=== PATIENT | female | born 1990 | race American Indian/Alaskan Native ===

== ENCOUNTER 2021-07-27 22:11 | Emergency (ER) | payer SELFPAY ==
[2021-07-27] MEDS ORDERED: AMOXICILLIN/K CLAV 875/125MG TAB PO ONE (23:05)
--- NOTE | 2021-07-27 23:10 | Emergency Department Report ---
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 Patient states she was obtaining a UA from a and accidentally had urine splashed on her eyes. Nurse did irrigate eyes with water prior to presenting to ED. Tetanus is up-to-date. There was no other contact or body fluids. Requesting baseline lab evaluation. Severity scale (0 -10): 0 - Related Data Previous Rx's Medication Instructions Recorded Last Taken Type Polymyxin B Sulf/Trimethoprim 2 drops OU Q3H 7 Days #10 ml 07/27/21 Unknown Rx [Polytrim Eye Drops] ED Review of Systems ROS: Stated complaint: BODELY FLUID IN EYE Other details as noted in HPI Constitutional: denies: chills, fever Eyes: other (eye itching bilat ). denies: eye pain, eye discharge, vision change ENT: denies: ear pain, throat pain Respiratory: denies: cough, shortness of breath, wheezing Cardiovascular: denies: chest pain, palpitations Endocrine: no symptoms reported Gastrointestinal: denies: abdominal pain, nausea, diarrhea Genitourinary: denies: urgency, dysuria, discharge Musculoskeletal: denies: back pain, joint swelling, arthralgia Skin: denies: rash, lesions Neurological: denies: headache, weakness, paresthesias Psychiatric: denies: anxiety, depression Hematological/Lymphatic: denies: easy bleeding, easy bruising ED Past Medical Hx - Past Medical History Previous Medical History?: No - Surgical History Past Surgical History?: No - Medications Home Medications: Home Medications Medication Instructions Recorded Confirmed Last Taken Type Polymyxin B Sulf/Trimethoprim 2 drops OU Q3H 7 Days #10 ml 07/27/21 Unknown Rx [Polytrim Eye Drops] ED Physical Exam - General Limitations: No Limitations General appearance: alert, in no apparent distress - Head Head exam: Present: normocephalic, normal inspection - Eye Eye exam: Present: PERRL, EOMI. Absent: conjunctival injection, nystagmus Pupils: Present: normal accommodation - ENT ENT exam: Present: normal exam - Neck Neck exam: Present: normal inspection, full ROM. Absent: tenderness - Respiratory Respiratory exam: Present: normal lung sounds bilaterally. Absent: respiratory distress, wheezes, stridor - Cardiovascular Cardiovascular Exam: Present: regular rate, normal rhythm, normal heart sounds - GI/Abdominal GI/Abdominal exam: Present: soft, normal bowel sounds. Absent: distended, tenderness - Rectal Rectal exam: Present: deferred - Extremities Exam Extremities exam: Present: normal inspection, full ROM, normal capillary refill - Back Exam Back exam: Present: normal inspection, full ROM. Absent: CVA tenderness (R), CVA tenderness (L) - Neurological Exam Neurological exam: Present: alert, oriented X3, CN II-XII intact, normal gait - Expanded Neurological Exam Expanded Patient oriented to: Present: person, place, time Speech: Present: fluid speech Best Eye Response ([place]): (4) open spontaneously Best Motor Response (Oniel): (6) obeys commands Best Verbal Response (Oniel): (5) oriented Oniel Total: 15 - Psychiatric Psychiatric exam: Present: normal affect, normal mood - Skin Skin exam: Present: warm, dry, intact, normal color. Absent: rash ED Course Vital Signs 07/27/21 22:14 Temperature 98.9 F Pulse Rate 100 H Respiratory 16 Rate Blood Pressure 134/83 [Right] O2 Sat by Pulse 99 Oximetry ED Medical Decision Making - Medical Decision Making There is no decreased vision. Patient treated with Augmentin prophylactically for urine splashed eye. Will DC with prescription for Polytrim. Plan this is a body fluid exposure. Patient will follow-up with occupational health in a.m. Baseline exposure labs obtained. Patient DC'd stable condition at this time. Verbalize agreement understanding with discharge plan. Patient DC'd in stable condition at this time. Critical care attestation.: If time is entered above; I have spent that time in minutes in the direct care of this critically ill patient, excluding procedure time. ED Disposition Clinical Impression: Employee exposure to body fluids Disposition: HOME / SELF CARE / HOMELESS Is pt being admited?: No Does the pt Need Aspirin: No Condition: Stable Instructions: Body Fluid Exposure Information Additional Instructions: Take medications as prescribed. Follow-up with occupational health in the a.m. as directed. Follow-up with your doctor as needed. Return to emergency department should symptoms worsen. Prescriptions: Polymyxin B Sulf/Trimethoprim [Polytrim Eye Drops] 2 drops OU Q3H 7 Days #10 ml Referrals: ERINN AGUILAR MD [Staff Physician] - 3-5 Days Forms: Work/School Release Form(ED) Time of Disposition: 23:13
[2021-07-27 23:49] VITALS: BP 134/82
[2021-07-28 00:03] LABS: Hematocrit 37.3 % (30.3-42.9); Hemoglobin 12.4 gm/dl (10.1-14.3); Mean Corpuscular HGB Conc 33 % (30-34); Mean Corpuscular Volume 84 fl (79-97); Platelet Count 246 K/mm3 (140-440); Red Blood Count 4.42 M/mm3 (3.65-5.03); Red Cell Distribution Width 13.9 % (13.2-15.2)
[2021-07-28 00:10] LABS: Alanine Aminotransferase 41 units/L (7-56); Albumin 4.1 g/dL (3.9-5); Blood Urea Nitrogen 15 mg/dL (7-17); Calcium 9.4 mg/dL (8.4-10.2); Hemolysis Index 10
[2021-07-28 00:25] LABS: Hepatitis B Surface Antigen Non-Reactive (Negative); Hepatitis C Virus Antibody Non-Reactive (NonReactive)
[2021-07-28 00:39] LABS: BUN/Creatinine Ratio 50
[2021-07-28 01:10] LABS: RBC Morphology Normal; Total Cells Counted 100
== END 2021-07-27 23:47 | disposition home or self-care (01) ==
LOC: ED 22:11
DX: Z77.21 Contact with and (suspected) exposure to potentially hazardous body fluids (principal); Z79.899 Other long term (current) drug therapy
CPT/HCPCS: 36415; 80053; 80074; 85007; 85025; 99283

== ENCOUNTER 2021-08-01 11:39 | Outpatient (CLI) | payer BC ==
[2021-08-01 13:17] LABS: Hepatitis B Surface Antigen Non-Reactive (Negative)
[2021-08-01 13:18] LABS: Hepatitis C Virus Antibody Non-Reactive (NonReactive)
[2021-08-08 12:39] LABS: HIV-1 Antibody Differentiation SEE SCANNED RESULT; HIV-2 Antibody Differentiation SEE SCANNED RESULT
== END 2021-08-01 11:40 | disposition home or self-care (01) ==
LOC: LAB 11:39
PROVIDERS: ATTEND Obstetrics & Gynecology
DX: Z01.419 Encounter for gynecological examination (general) (routine) without abnormal findings (principal); Z11.2 Encounter for screening for other bacterial diseases; Z11.3 Encounter for screening for infections with a predominantly sexual mode of transmission
CPT/HCPCS: 36415; 80074; 86592; 86689; 87591